=== PATIENT | male | born 1940 ===

== ENCOUNTER → 2018-08-31 | Outpatient (CLI) | payer OTHER | END | disposition home or self-care (01) | LOC: LAB SHORT 16:08 → LAB 16:08 | DX: S31.809D Unspecified open wound of unspecified buttock, subsequent encounter (principal); L08.9 Local infection of the skin and subcutaneous tissue, unspecified | CPT/HCPCS: 87070; 87075; 87076; 87185; 87205 ==

== ENCOUNTER → 2018-09-23 | Outpatient (CLI) | payer OTHER ==
[~2018-09-23] MED LIST: BENADRYL25 MG PO; CHOL10002 PO; IBUP600 PO; IBUPROFEN200 MG PO; LISI20 PO; LOPE2C PO; METO50 PO; TRAM50 PO; VIT C-ROSE HIP500 MG; Vancocin HCL1000 M1 PO
[2018-09-23 14:03] LABS: Bilirubin, Urine Neg (Neg); Blood, Urine Neg (Neg); Glucose Qualitative, Urine Neg (Neg); Ketones, Urine Neg (Neg); Leukocyte Esterase, Urine Neg (Neg); Nitrite, Urine Neg (Neg); Protein, Urine 1+ (Neg); Specific Gravity, Urine 1.015 (1.003-1.022); Urobilinogen, Urine NORM (Normal)
[2018-09-23 14:09] LABS: Appearance, Urine Clear (Clear); Color, Urine Yellow (P-Yellow)
== END | disposition home or self-care (01) ==
LOC: LAB 13:36 → LAB SHORT 13:36
PROVIDERS: Physician Assistant Medical
DX: M06.09 Rheumatoid arthritis without rheumatoid factor, multiple sites (principal); I10 Essential (primary) hypertension; R63.4 Abnormal weight loss
CPT/HCPCS: 81003

== ENCOUNTER 2018-11-27 15:28 | Inpatient (IN) | payer OTHER ==
[~2018-11-27] VITALS: Ht 175.3 cm; Wt 71.8 kg
[~2018-11-27 15:28] MED LIST changes: -Acetaminophen325 M1 PO; -Augmentin 875-1 EACH PO; -DOCU100 PO; -FENTANYL1 EAC1 TD; -Ferrous Glucon324 M1 PO; -GABA100 PO; -IBUP400 PO; -LEVSOD125 PO; -MELO7.5 PO; -PANT40 PO; -PROBIOTIC1 EACH PO
[2018-11-27] MEDS ORDERED: Acetaminophen325 M1 PO (15:56)
[2018-11-27] MEDS ORDERED: DOCU100 PO (15:56)
[2018-11-27] MEDS ORDERED: IBUP400 PO (15:57)
[2018-11-27] MEDS ORDERED: Ferrous Glucon324 M1 PO (15:58)
[2018-11-27] MEDS ORDERED: PROBIOTIC1 EACH PO (15:58)
[2018-11-27] MEDS ORDERED: PANT40 PO (15:58)
[2018-11-27 16:10] LABS: Source, Urine Clean Catch
[2018-11-27 16:14] LABS: BASOPHILS ABSOLUTE AUTO 0.03 K/mm3 (0.00-0.23); BASOPHILS PERCENT AUTO 0 % (0-2); EOSINOPHILS ABSOLUTE AUTO 1.01 K/mm3 (0.00-0.68); EOSINOPHILS PERCENT AUTO 5 % (0-6); Hematocrit 28.7 % (37.0-53.0); IMMATURE GRAN ABSOLUTE AUTO 0.11 K/mm3 (0.00-0.10); IMMATURE GRAN PERCENT AUTO 1 % (0-1); LYMPHOCYTES ABSOLUTE AUTO 1.61 K/mm3 (0.84-5.20); LYMPHOCYTES PERCENT AUTO 8 % (21-46); MONOCYTES ABSOLUTE AUTO 0.71 K/mm3 (0.16-1.47); MONOCYTES PERCENT AUTO 4 % (4-13); Mean Corpuscular HGB 30.4 pg (26.0-34.0); Mean Corpuscular HGB Conc 31.4 g/dL (31.5-36.5); Mean Corpuscular Volume 97 fL (80-100); NEUTROPHILS ABSOLUTE AUTO 15.73 K/mm3 (1.96-9.15); NEUTROPHILS PERCENT AUTO 82 % (41-73); RDW Coefficient Variation 15.8 % (11.7-14.2); RDW Standard Deviation 56.1 fL (35.1-46.3); Red Blood Cell Count 2.96 M/mm3 (4.30-5.90)
[2018-11-27 16:15] LABS: Mean Platelet Volume 8.8 fL (9.1-12.4); Platelet Count 402 K/mm3 (150-400)
[2018-11-27 17:00] LABS: Bilirubin, Urine Neg (Neg); Blood, Urine Neg (Neg); Glucose Qualitative, Urine Neg (Neg); Ketones, Urine Neg (Neg); Leukocyte Esterase, Urine 2+ (Neg); Nitrite, Urine Neg (Neg); Protein, Urine 2+ (Neg); Specific Gravity, Urine 1.015 (1.003-1.022); Urobilinogen, Urine NORM (Normal)
[2018-11-27 17:04] LABS: Alanine Aminotransfer (ALT/SGP 12 U/L (12-78); Albumin, Blood 2.8 g/dL (3.4-5.0); Albumin/Globulin Ratio 0.6 (0.8-1.8); Alk Phos 77 U/L (50-136); Anion Gap 9 mmol/L (6-16); Aspartate Aminotrans (AST/SGOT 13 U/L (12-37); Bilirubin, Total 0.2 mg/dL (0.1-1.0); Blood Urea Nitrogen 30 mg/dL (8-24); Bun/Creatinine Ratio 35.4 (12.0-20.0); CO2, Blood 19 mmol/L (21-32); Calcium, Blood 8.7 mg/dL (8.5-10.1); Chloride, Blood 108 mmol/L (98-108); Creatinine, Blood 0.85 mg/dL (0.60-1.20); Globulin, Blood 4.5 g/dL (2.2-4.0); Glomerular Filtration Rate >60 (60-); Glucose, Blood 96 mg/dL (70-99); Potassium, Blood 4.8 mmol/L (3.5-5.5); Sodium, Blood 136 mmol/L (136-145); Total Protein, Blood 7.3 g/dL (6.4-8.2)
[2018-11-27 17:05] LABS: Appearance, Urine Hazy (Clear); Color, Urine Yellow (P-Yellow)
[2018-11-27 17:10] LABS: Bacteria Few /hpf; Red Blood Cells, Urine 0-2 /hpf (0-2); Squamous Epithelial Cells Not Seen /hpf (Few)
[2018-11-27 19:49] LABS: Influenza A Negative (NEGATIVE); Influenza B Negative (NEGATIVE)
[2018-11-28 05:59] LABS: Anion Gap 9 mmol/L (6-16); Blood Urea Nitrogen 23 mg/dL (8-24); Bun/Creatinine Ratio 26.7 (12.0-20.0); CO2, Blood 20 mmol/L (21-32); Calcium, Blood 7.8 mg/dL (8.5-10.1); Chloride, Blood 110 mmol/L (98-108); Creatinine, Blood 0.86 mg/dL (0.60-1.20); Glomerular Filtration Rate >60 (60-); Glucose, Blood 75 mg/dL (70-99); Potassium, Blood 3.6 mmol/L (3.5-5.5); Sodium, Blood 139 mmol/L (136-145)
--- NOTE | 2018-11-28 06:18 | NUR ---
SHIFT SUMMARY 3210 RECEIVED PT TO 353 VIA GURNEY FROM ER. PT TO ER FROM [facility] WITH C/O FEVER, SINCE YESTERDAY AFTERNOON; 103.5. RECEIVED REPORT FROM CLARI LOZA. PT ADMITTED FOR SEPSIS R/T WOUND ON BUTTOCKS. PT FINISHING SEPSIS PROTOCOL WHEN COMING TO . H/H RN REPORTED WOUND LOOKING INFECTED WHEN WOUND VAC CHANGED AT [facility]. PT IS A&O, BUT VERY [place]. VERY DIFFICULT TO COMMUNICATE WITH BECAUSE HE CANNOT HEAR TO ANS QUESTIONS. CONTRACTURES IN ALL EXTREMITIES R/T ARTHRITIS. C/O SEVERE PAIN IN L LEG; VERY MISERABLE. ULTRAM GIVEN, BUT MINIMAL RELIEF. DR CALZADA NOTIFIED FOR ADDITIONAL PAIN MEDICATION. PT MEDICATED WITH 25 MCG FENTANYL PER EMAR, BUT STILL IS IN ALOT OF PAIN. OFFERED TO REPOSITION PT, BUT HE DECLINED. PER REPORT, PT WAS IRRITABLE IN ER, BUT HAS BEEN PLEASANT AND GRATEFUL FOR THE MOST PART UP HERE. PT IS JUST IN ALOT OF PAIN AND WAS VERY COLD R/T FEVER. WOUND VAC TO BE CHANGED OUT THIS AM. ROLL BUCKER INFORMED. BED ALARM ON FOR SAFETY. CALL LT IN REACH. PT USES URINAL IN BED AND CALLS FOR IT TO BE EMPTIED NEEDED.
[2018-11-28 07:40] LABS: Hematocrit 23.7 % (37.0-53.0); Hemoglobin 7.6 g/dL (13.5-17.5); Mean Corpuscular HGB 30.8 pg (26.0-34.0); Mean Corpuscular HGB Conc 32.1 g/dL (31.5-36.5); Mean Corpuscular Volume 96 fL (80-100); Platelet Count 293 K/mm3 (150-400); RDW Standard Deviation 56.2 fL (35.1-46.3); Red Blood Cell Count 2.47 M/mm3 (4.30-5.90); White Blood Cell Count 28.71 K/mm3 (4.00-11.30)
[2018-11-28 08:22] LABS: BAND PERCENT MAN 15 % (0-8); BASOPHILS PERCENT MAN 0 % (0-2); EOSINOPHILS PERCENT MAN 0 % (0-6); LYMPHOCYTES ABSOLUTE MAN 1.43 K/mm3 (0.84-5.20); LYMPHOCYTES PERCENT MAN 5 % (21-46); MONOCYTES ABSOLUTE MAN 0.28 K/mm3 (0.16-1.47); MONOCYTES PERCENT MAN 1 % (4-13); NEUTROPHILS ABSOLUTE MAN 26.98 K/mm3 (1.96-9.15); SEG NEUTROPHILS PERCENT MAN 79 % (41-73); TOTAL CELLS COUNTED 100
[2018-11-28 18:05] LABS: Vancomycin, Trough 14.4 ug/mL (5.0-10.0)
--- NOTE | 2018-11-28 19:35 | NUR ---
SHIFT SUMMARY NO ACUTE CHANGES. WOUND VAC REPLACED TODAY. MEDICATED FOR PAIN X 2 THIS SHIFT. NO COMPLAINTS OF NAUSEA OR SHORTNESS OF BREATH. PATIENT HARD OF HEARING BUT ABLE TO USE PEN AND PAPER TO COMMUNICATE WITH STAFF. CALL LIGHT IN REACH. REPORT GIVEN TO ONCOMING RN.
--- NOTE | 2018-11-29 03:42 | NUR ---
11/29/18 0325 REFUSED TO TURN HE IS "COMFORTABLE NOW". OFFERED PAIN MED BUT DECLINED AT PRESENT. INFORMED HIM WE WILL NEED TO TURN HIM LATER THIS SHIFT PER HOSPITAL PROTOCOL. RELUCTANTLY HE AGREED FOR LATER.
[2018-11-29 05:24] LABS: BASOPHILS ABSOLUTE AUTO 0.04 K/mm3 (0.00-0.23); BASOPHILS PERCENT AUTO 0 % (0-2); EOSINOPHILS ABSOLUTE AUTO 0.19 K/mm3 (0.00-0.68); EOSINOPHILS PERCENT AUTO 1 % (0-6); Hematocrit 22.3 % (37.0-53.0); Hemoglobin 7.2 g/dL (13.5-17.5); IMMATURE GRAN ABSOLUTE AUTO 0.16 K/mm3 (0.00-0.10); IMMATURE GRAN PERCENT AUTO 1 % (0-1); LYMPHOCYTES ABSOLUTE AUTO 0.99 K/mm3 (0.84-5.20); LYMPHOCYTES PERCENT AUTO 5 % (21-46); MONOCYTES ABSOLUTE AUTO 0.64 K/mm3 (0.16-1.47); MONOCYTES PERCENT AUTO 4 % (4-13); Mean Corpuscular HGB 30.9 pg (26.0-34.0); Mean Corpuscular HGB Conc 32.3 g/dL (31.5-36.5); Mean Corpuscular Volume 96 fL (80-100); NEUTROPHILS ABSOLUTE AUTO 16.51 K/mm3 (1.96-9.15); NEUTROPHILS PERCENT AUTO 89 % (41-73); RDW Coefficient Variation 16.1 % (11.7-14.2); RDW Standard Deviation 56.3 fL (35.1-46.3); Red Blood Cell Count 2.33 M/mm3 (4.30-5.90); White Blood Cell Count 18.53 K/mm3 (4.00-11.30)
[2018-11-29 05:25] LABS: Mean Platelet Volume 9.2 fL (9.1-12.4); Platelet Count 247 K/mm3 (150-400)
[2018-11-29 05:50] LABS: Anion Gap 12 mmol/L (6-16); Blood Urea Nitrogen 27 mg/dL (8-24); Bun/Creatinine Ratio 26.2 (12.0-20.0); CO2, Blood 16 mmol/L (21-32); Calcium, Blood 7.7 mg/dL (8.5-10.1); Chloride, Blood 111 mmol/L (98-108); Creatinine, Blood 1.03 mg/dL (0.60-1.20); Glomerular Filtration Rate >60 (60-); Glucose, Blood 68 mg/dL (70-99); Potassium, Blood 3.3 mmol/L (3.5-5.5); Sodium, Blood 139 mmol/L (136-145)
--- NOTE | 2018-11-29 06:18 | NUR ---
11/29/18 0600 HGB = 7.2 AND RN INFORMED PT THAT IT IS LOW AND DOCTOR MAY WANT TO GIVE HIM BLOOD TRANSFUSION AND NEED A CONSENT. PT REFUSED BLOOD TRANSFUSION FOR NOW AND WANTS TO "TAKE A PILL" TO BUILD UP BLOOD AND THEN GO HOME. RN SPOKE WITH SENIOR BUSINESS DEVELOPMENT ANALYST,DUSTIN, THAT PT HAD HGB = 7.6 AND NO TRANSFUSIONS WERE ORDERED. AFTER DISCUSSION RN WILL INFORM DAY RN THAT PT REFUSED TRANSFUSION FOR NOW AND DAY MD MAY DISCUSS OPTIONS WITH PT.
--- NOTE | 2018-11-29 16:17 | NUR ---
SHIFT SUMMARY NO ACUTE CHANGES. PATIENT PLEASANT AND COOPERATIVE WITH CARE. PEN AND PAPER USED TO COMMUNICATE WITH PATIENT. MEDICATED X 1 FOR PAIN URING SHIFT. PATIENT REPORTS HE IS FEELING BETTER. CALL LIGHT IN REACH, WILL CONTINUE TO MONITOR.
--- NOTE | 2018-11-30 04:48 | NUR ---
PT IS A/OX3, PLEASANT AND COOPERATIVE, THE PT IS VERY HARD OF HEARING, WRITTEN COMMUNICATION WORKS WELL FOR THE PT, THE PT REPORTED PAIN IN HIS NECK T/O THE NIGHT THE PT WAS MEDICATED FOR PAIN WELL GIVEN NECK MESSAGES HE REQUESTED, THE PT USED THE CALL SYSTEM APPROPRIATLY , THE PT WAS AWAKE FOR MOST OF THE NIGHT, THE PT APPEARS TO BE BREATHING EASILY ON O2 AT REST, CALL LIGHT IN REACH, BED IN THE LOW POSITION, BED ALARM ON
[2018-11-30 12:50] LABS: Stool Occult Blood Guaiac 1 Neg (Neg)
--- NOTE | 2018-11-30 18:43 | NUR ---
SUMMARY PT RESTING QUIETLY IN BED WATCHING TV, PT IS VERY [place], BUT IS ALERT, ORIENTED, AND PLEASANT, USES HIS CALL LIGHT APPROPRIATELY, MED PER EMAR FOR PAIN, PT TAKES HIS PILLS WHOLE WITH WATER, PT DOES NOT AMBULATE, WOUND VAC TO BE CHANGED BY MIS MANAGER, ODILON, NO ACUTE CHANGES, WILL CONT TO MONITOR
--- NOTE | 2018-12-01 06:11 | NUR ---
SHIFT SUMMARY PT ADMITTED FOR SEPSIS LIKELY SECONDARY TO DECUB TO L BUTTOCKS WITH WOUND VAC IN PLACE OR POSSIBLY PNEUMONIA, PT DID HAVE POSITIVE BLOOD CULTURES. FULL CODE. SOFET BIT SIZE DIET. BEDREST, PT IS BEDBOUND AT BASELINE. PT LIVES AT [facility] AND IS ANXIOUS TO RETURN. HOWEVER, IT APPEARS THAT PT MAY NEED IV ANTIBIOTICS FOR AN EXTENDED PERIOD OF TIME, AND JAIL PLACEMENT MAY NEED TO BE ARRANGED IF PT WILL AGREE. PT WAS BROUGHT OT THE ED DUE TO AMS AND FEVER. THE PT IS EXTREMELY [place] AND IT IS BEST TO COMMUNICATE IN WRITING. PT NOTED TO HAVE INCREASED TEMP X2 SO FAR THIS SHIFT, ADMINISTERED TYLENOL. C/O PAIN X2 AND MEDICATED WELL. PT HAS APPEARED TO SLEEP COMFORTABLY MOST OF THE NIGHT. PT APPEARES TO BE SLEEPING COMFORTABLY AT THIS TIME WITH NO APPARENT SIGNS OF ACUTE DISTRESS. ABLE TO MAKE NEEDS KNOWN AND CALL LIGHT IN REACH.
[2018-12-01 14:11] LABS: BASOPHILS ABSOLUTE AUTO 0.02 K/mm3 (0.00-0.23); BASOPHILS PERCENT AUTO 0 % (0-2); EOSINOPHILS ABSOLUTE AUTO 0.97 K/mm3 (0.00-0.68); EOSINOPHILS PERCENT AUTO 6 % (0-6); Hematocrit 23.9 % (37.0-53.0); Hemoglobin 7.5 g/dL (13.5-17.5); IMMATURE GRAN ABSOLUTE AUTO 0.19 K/mm3 (0.00-0.10); IMMATURE GRAN PERCENT AUTO 1 % (0-1); LYMPHOCYTES ABSOLUTE AUTO 1.16 K/mm3 (0.84-5.20); LYMPHOCYTES PERCENT AUTO 7 % (21-46); MONOCYTES ABSOLUTE AUTO 0.47 K/mm3 (0.16-1.47); MONOCYTES PERCENT AUTO 3 % (4-13); Mean Corpuscular HGB 30.7 pg (26.0-34.0); Mean Corpuscular HGB Conc 31.4 g/dL (31.5-36.5); Mean Corpuscular Volume 98 fL (80-100); NEUTROPHILS PERCENT AUTO 83 % (41-73); Platelet Count 293 K/mm3 (150-400); RDW Coefficient Variation 15.7 % (11.7-14.2); RDW Standard Deviation 56.6 fL (35.1-46.3); Red Blood Cell Count 2.44 M/mm3 (4.30-5.90); White Blood Cell Count 16.51 K/mm3 (4.00-11.30)
[2018-12-01 14:26] LABS: Anion Gap 8 mmol/L (6-16); Blood Urea Nitrogen 19 mg/dL (8-24); Bun/Creatinine Ratio 25.2 (12.0-20.0); CO2, Blood 19 mmol/L (21-32); Calcium, Blood 8.4 mg/dL (8.5-10.1); Chloride, Blood 107 mmol/L (98-108); Creatinine, Blood 0.75 mg/dL (0.60-1.20); Glomerular Filtration Rate >60 (60-); Glucose, Blood 86 mg/dL (70-99); Potassium, Blood 3.6 mmol/L (3.5-5.5); Sodium, Blood 134 mmol/L (136-145)
--- NOTE | 2018-12-01 18:05 | NUR ---
SHIFT SUMMARY T[place]A. USING URINAL AND BEDPAIN WELL; AFEBRILE THROUGHOUT SHIFT. REPOSITION Q [address]; FOLLOWING DIRECTIONS, CALM, COOPERATIVE. DENIES ANY PAIN OR DISTRESS.
--- NOTE | 2018-12-02 04:49 | NUR ---
SHIFT SUMMARY PT CONTINUES TO HAVE INCREASED TEMP X2, MEDICATED PER EMAR AND TEMP REDUCED. WILL RE-ASSESS TEMP FOR RECENT ADMINISTRATION. PT DID APPEAR TO BE MORE FATIGUED THIS NIGHT THEN PREVIOUS AND SLEP THROUGH MOST OF THIS SHIFT SO FAR. PT DOES EASILY AWAKEN WITH CARE. CONTINUE TO COMMUNICATE VIA WRITTEN DUE TO HEARING DEFECIT. WASHED PTS FACE PER PT REQUEST TO IMPROVE FEELINGS OF COMFORT AND CLEANLIENESS. PT CONTINUES TO RESIST REPOSITION AND REQUESTS TO LAY IN SIMILAR POSITION THROUGHOUT THE NIGHT. PT BECOMES AGITATED WITH MULTIPLE ATTEMPTS SO WEIGHT SHIFTING PERFORMED AND REPOSITIONED TOLLERATED. PT APPEARED TO SLEEP COMFORTABLY MOST OF THE NIGHT WITH NO APPARENT SIGNS OF ACUTE DISTRESS. ABLE TO MAKE NEEDS KNOWN AND CALL LIGHT IN REACH.
[2018-12-02 06:08] LABS: Creatinine, Blood 0.76 mg/dL (0.60-1.20); Vancomycin, Trough 15.4 ug/mL (5.0-10.0)
[2018-12-02 08:13] LABS: BASOPHILS ABSOLUTE AUTO 0.04 K/mm3 (0.00-0.23); BASOPHILS PERCENT AUTO 0 % (0-2); EOSINOPHILS ABSOLUTE AUTO 0.72 K/mm3 (0.00-0.68); EOSINOPHILS PERCENT AUTO 5 % (0-6); Hematocrit 22.7 % (37.0-53.0); Hemoglobin 7.1 g/dL (13.5-17.5); IMMATURE GRAN ABSOLUTE AUTO 0.29 K/mm3 (0.00-0.10); IMMATURE GRAN PERCENT AUTO 2 % (0-1); LYMPHOCYTES PERCENT AUTO 9 % (21-46); MONOCYTES ABSOLUTE AUTO 0.65 K/mm3 (0.16-1.47); MONOCYTES PERCENT AUTO 4 % (4-13); Mean Corpuscular HGB 31.3 pg (26.0-34.0); Mean Corpuscular HGB Conc 31.3 g/dL (31.5-36.5); Mean Corpuscular Volume 100 fL (80-100); Mean Platelet Volume 9.3 fL (9.1-12.4); NEUTROPHILS ABSOLUTE AUTO 12.09 K/mm3 (1.96-9.15); NEUTROPHILS PERCENT AUTO 80 % (41-73); Platelet Count 287 K/mm3 (150-400); RDW Coefficient Variation 15.6 % (11.7-14.2); RDW Standard Deviation 57.3 fL (35.1-46.3); Red Blood Cell Count 2.27 M/mm3 (4.30-5.90); White Blood Cell Count 15.19 K/mm3 (4.00-11.30)
[2018-12-02 08:17] LABS: Anion Gap 12 mmol/L (6-16); Blood Urea Nitrogen 19 mg/dL (8-24); Bun/Creatinine Ratio 25.1 (12.0-20.0); CO2, Blood 19 mmol/L (21-32); Calcium, Blood 8.5 mg/dL (8.5-10.1); Chloride, Blood 104 mmol/L (98-108); Creatinine, Blood 0.76 mg/dL (0.60-1.20); Glomerular Filtration Rate >60 (60-); Glucose, Blood 80 mg/dL (70-99); Potassium, Blood 3.8 mmol/L (3.5-5.5); Sodium, Blood 135 mmol/L (136-145)
--- NOTE | 2018-12-02 17:57 | NUR ---
SHIFT SUMMARY [place]; OX3; SAT ON EDGE OF BED WITH PHYSICAL THERAPY TODAY; UNABLE TO BEAR WEIGHT DUE TO WEAKNESS. USING URINAL AND BEDPAN. STAFF USING PEN AND PAPER FOR COMMUNICATION. WOUND VAC DRESSING CHANGE COMPLETED TODAY.
--- NOTE | 2018-12-02 20:53 | NUR ---
NOTIFIED DR FUNG THAT PT HAD TEMPORAL TEMP 101.4 AND ORAL TEMP 100.1. PT HAS SEPSIS ON VANCO AND ZOSYN FOR UTI AND POSITIVE BLOOD CULTURE . TYLENO 650 MG PO GIVEN AWAIT EFFECT
--- NOTE | 2018-12-03 06:02 | NUR ---
PT HAS PATENT WOUND VAC LT GLUTEAL WITH MINIMAL DRAINAGE TO CANNISTER. DRESSING WAS CHANGED 12/02/17 DAY SHIFT
--- NOTE | 2018-12-03 10:16 | NUR ---
ATTEMPTED TO CALL DR POTTS FAST BUSY NO ANSWER, WILL SEARCH FOR ALTERNATE CONTACT INFO.
--- NOTE | 2018-12-03 17:45 | NUR ---
SHIFT SUMMARY- PT HAS BEEN COMFORTABLE T/O THE SHIFT, FREQUENTLY PT WAS ASKED ABOUT PAIN AND DENIED THE NEED FOR PAIN MEDS. ON NURSE ROUNDING PT STATED HE HAS 10/10 PAIN, MEDICATED WITH PO TRAMADOL. WOUND VAC IN PLACE AND DRAINING SCANT AMOUNT OF SS FLUID. PT HAS A SMALL SKIN ABRASION ON THE LEFT RIBS COVERED WITH MEPILEX. WILL MEDICATE WITH PRN TYLENOL IF TRAMADOL NOT EFFECTIVE. IV PATENT IV ABX RUNNING NOW, THEN WILL START DOSE OF IV VANCO. PT VERY [place].
--- NOTE | 2018-12-04 02:08 | NUR ---
PT CONTINUES ON IV ANTIBIOTICS FOR SEPSIS UTI AND DECUB. HE HAS PAIN CONTROLLED ON ORAL MEDS WITH PRN FENTANYL AVAILABLE PRN FOR WOUND CARE. HE IS BEDBOUND WITH CONTRACTURES AND HE NEEDS REPOSITIONED Q 2 HOURS. HE HAS PATENT WOUND VAC TO LT GLUTEAL PATENT REINFORED ONCE FOR LEAK ALARM. DC PLANNING FOR CONTINUED IV ANTIBIOTICS. ORDERED INFECTIOUS DISEASE CONSULT. THAT IS NOT AVAILABE UNTIL DEC 10 2018.
[2018-12-04 04:54] LABS: BASOPHILS ABSOLUTE AUTO 0.04 K/mm3 (0.00-0.23); BASOPHILS PERCENT AUTO 0 % (0-2); EOSINOPHILS ABSOLUTE AUTO 1.27 K/mm3 (0.00-0.68); EOSINOPHILS PERCENT AUTO 8 % (0-6); Hematocrit 22.2 % (37.0-53.0); Hemoglobin 7.1 g/dL (13.5-17.5); IMMATURE GRAN ABSOLUTE AUTO 1.27 K/mm3 (0.00-0.10); IMMATURE GRAN PERCENT AUTO 8 % (0-1); LYMPHOCYTES PERCENT AUTO 10 % (21-46); MONOCYTES ABSOLUTE AUTO 0.92 K/mm3 (0.16-1.47); MONOCYTES PERCENT AUTO 6 % (4-13); Mean Corpuscular HGB 29.6 pg (26.0-34.0); Mean Platelet Volume 8.9 fL (9.1-12.4); NEUTROPHILS ABSOLUTE AUTO 11.27 K/mm3 (1.96-9.15); NEUTROPHILS PERCENT AUTO 69 % (41-73); Platelet Count 292 K/mm3 (150-400); RDW Standard Deviation 51.2 fL (35.1-46.3); White Blood Cell Count 16.37 K/mm3 (4.00-11.30)
[2018-12-04 04:55] LABS: Mean Corpuscular Volume 93 fL (80-100)
[2018-12-04 05:25] LABS: Albumin, Blood 1.7 g/dL (3.4-5.0); Anion Gap 11 mmol/L (6-16); Blood Urea Nitrogen 18 mg/dL (8-24); Bun/Creatinine Ratio 25.4 (12.0-20.0); CO2, Blood 20 mmol/L (21-32); Calcium, Blood 8.5 mg/dL (8.5-10.1); Chloride, Blood 102 mmol/L (98-108); Creatinine, Blood 0.71 mg/dL (0.60-1.20); Glomerular Filtration Rate >60 (60-); Glucose, Blood 79 mg/dL (70-99); Phosphorus, Blood 2.7 mg/dL (2.5-4.9); Potassium, Blood 3.7 mmol/L (3.5-5.5); Sodium, Blood 133 mmol/L (136-145)
--- NOTE | 2018-12-04 10:27 | NUR ---
PT SBP 112 AND HR 60, PERAMETERS FOR METOPROLOL ARE HOLD FOR HR LESS THAN 65. METOPROLOL NOT GIVEN. DR WHITLEY IS AWARE. PT MEDICATED FOR PAIN WITH TRAMADOL, DID NOT REQUEST THE PAIN MEDS BUT SEEMED RELIEVED THAT PAIN MEDS WERE AVAILABLE.
[2018-12-04 11:43] LABS: Vancomycin, Trough 15.7 ug/mL (5.0-10.0)
--- NOTE | 2018-12-04 19:55 | NUR ---
SHIFT SUMMARY- PT HAS HAD PAIN T/O THE SHIFT, FREQUENT REPOSITIONINGWAS DONE TO PREVENT FURTHER BREAKDOWN. DR SCHWAB CONSULTED TODAY TO SEE IF THERE IS ANY REASON FOR THE FEVERS THAT THE PT HAS BEEN HAVING. WOUND VAC NOT CHANGED, WAITING FOR DR TO COME AND SEE THE WOUND BED. LIVESTOCK BREEDER AWARE, NIGHT RN AWARE. PHOTOS SHOULD BE TAKEN WHEN THE VAC IS CHANGED. PT ALERT AND ORIENTED, VERY [place], USING PAPER AND PEN TO COMMUNICATE. PT HAS SEVERE RA, ALL JOINTS ARE PAINFUL.
[2018-12-04 23:02] LABS: Albumin, Blood 1.7 g/dL (3.4-5.0); Anion Gap 9 mmol/L (6-16); Blood Urea Nitrogen 18 mg/dL (8-24); Bun/Creatinine Ratio 25.9 (12.0-20.0); CO2, Blood 22 mmol/L (21-32); Calcium, Blood 8.3 mg/dL (8.5-10.1); Chloride, Blood 101 mmol/L (98-108); Glomerular Filtration Rate >60 (60-); Glucose, Blood 90 mg/dL (70-99); Phosphorus, Blood 2.8 mg/dL (2.5-4.9); Potassium, Blood 4.1 mmol/L (3.5-5.5); Sodium, Blood 132 mmol/L (136-145)
[2018-12-05 05:24] LABS: Hematocrit 21.7 % (37.0-53.0); Mean Corpuscular HGB 30.2 pg (26.0-34.0); Mean Corpuscular HGB Conc 32.3 g/dL (31.5-36.5); Mean Corpuscular Volume 94 fL (80-100); Platelet Count 302 K/mm3 (150-400); RDW Coefficient Variation 14.7 % (11.7-14.2); RDW Standard Deviation 49.8 fL (35.1-46.3); Red Blood Cell Count 2.32 M/mm3 (4.30-5.90)
[2018-12-05 06:09] LABS: BASOPHILS PERCENT MAN 0 % (0-2); EOSINOPHILS ABSOLUTE MAN 1.49 K/mm3 (0.00-0.68); EOSINOPHILS PERCENT MAN 10 % (0-6); LYMPHOCYTES ABSOLUTE MAN 1.04 K/mm3 (0.84-5.20); LYMPHOCYTES PERCENT MAN 7 % (21-46); MONOCYTES ABSOLUTE MAN 0.89 K/mm3 (0.16-1.47); MONOCYTES PERCENT MAN 6 % (4-13); MYELOCYTE ABSOLUTE MAN 0.59 K/mm3 (0.00-0.00); MYELOCYTE PERCENT MAN 4 % (0-0); NEUTROPHILS ABSOLUTE MAN 10.87 K/mm3 (1.96-9.15); SEG NEUTROPHILS PERCENT MAN 73 % (41-73); TOTAL CELLS COUNTED 100
--- NOTE | 2018-12-05 07:51 | NUR ---
SHIFT SUMMARY: PT COMMUNICATES TO STAFF USING NOTEPAD. VERY [place]. WOUND VAC IN PLACE TO L BUTTOCK; PATENT AND DRAINING SMALL AMOUNT OF LIGHT BROWN DRIANAGE. DRESSING C/D/I. 20 G IN L WRIST; PATENT AND RECIEVING ANTIBIOTICS. PT C/O PAIN SEVERAL TIMES, RELIEVED c TRAMADOL. IBUPROFEN ADMINISTERED 1X FOR TEMP OF 99. TEMP REMAINS WNL AFTER THAT. TOLERATES ROOM AIR. NO OTHER ACUTE CHANGES TO REPORT.
--- NOTE | 2018-12-05 09:10 | NUR ---
PT PLEASANT COOP UNABLE TO HEAR. DOES NOT READ LIPS WELL IF AT ALL. WRITE NOTES FOR HIM TO READ AND HE VERBALLY ANSWERS. ALERT AND ORIENTED. ANSWERS APPROP. SOME PAIN AT THIS TIME, NOT WANT MEDS AT THIS TIME. H/R IRREGULAR, NO MURMER NOTED. NO TELE. NO PACER NOTED. LUNGS CLEAR, RESP EASY, UNLABORED. BT X4 LAST BM NOT KNOWN BY PT. VOIDS IN URINAL. BED IN LOW POSITION, CALL LITE IN REACH. BED ALARM FOR SAFETY
--- NOTE | 2018-12-05 15:00 | NUR ---
PT STATES PAIN NOT BEING CONTROLLED WELL. DID GEVE FENTANYL, BUT PT FEELS BETTER IF LONG ACTING AVAILABLE. HE STATES TAKES 4 IBUPROPHEN BID JUST TO KEEP CLOSE TO COVERING, BUT DOES NOT REALLY HELP. EXPLAINED THIS CAN SOMETIMES CAUSE STOMACH PROBLEMS. HE STATES PAIN WORSE THAN POSS STOMACH PROBS. CALLED DR. CARR TO MAKE ORDERS.
--- NOTE | 2018-12-05 16:46 | NUR ---
I HAVE TRIED TO REPOSITION THE PATIENT SEVERAL TIMES AND HE HAS IMFORMED ME THAT "THE DOCTORS WANT ME TO LAY ON ONE SIDE AND THE NURSES WANT ME TO LAY ON ONE SIDE BUT GUESS WHAT I PAY THE BILLS HERE AND I AM GOING TO LAY THE WAY I WANT TO LAY"
--- NOTE | 2018-12-05 17:45 | NUR ---
TALKED TO PT ABOUT TURNING. HE HAS BEEN REFUSING. EXPLAINED 2 HRS NO MOVEMENT MAKES MORE BED SORES. HE AGREED TO LET ME MOVE PILLOWS TODAY, BUT NOT MUCH. REFUSED TO LAY ON EITHER SIDE. ONLY LIGHT PILLOW PLACEMENTS. DONE.
--- NOTE | 2018-12-05 19:09 | NUR ---
PT PLEASANT TODAY. HAS BEEN EXPLAINING ABOUT HIS PAIN. USUALLY NOT TOO BAD, BUTWITH ANY MOVEMENT SHOOTS UP TO OUT OF CONTROL IMMEDIATLY. TALKED TO DR ABOUT CHANGING MEDS TO BETTER COVERAGE. CHANGES MADE. NO OTHER CONCERNS AT THIS TIMNE. BED IN LOW POSITION, CALL LITE IN REACH, BED ALARM ON FOR SAFETY
[2018-12-06 05:18] LABS: Percent Saturation 18.3 % (20.0-50.0)
--- NOTE | 2018-12-06 06:21 | NUR ---
SHIFT SUMMARY: NO ACUTE CHANGES THIS SHIFT. PT A&O, BEDBOUND AT BASELINE. TREATED 1X c PO OXYCODONE FOR PAIN, THIS SEEMS TO BE PROVIDING MORE RELIEF. RECIEVED ANTIBIOTICS T/O SHIFT; SALINE LOCKED AT THIS TIME. CONTINENT OF URINE. STOOL SAMPLE STILL NEEDED, PT DID NOT HAVE BM TONIGHT. NO OTHER ACUTE CHANGES TO REPORT. WILL CONT TO MONITOR AND PROVIDE CARE UNTIL PRESUMED BY ONCOMING RN.
--- NOTE | 2018-12-06 08:00 | NUR ---
PT PLEASANT OCCATIONALLY BECOMES IRRITABLE. NO HEARING. WRITE QUESTIONS, WHICH HE READS. HE ANSWERS. A/O X3. STATES PAIN MANAGED BETTER. DENIES PAIN IN WOUND. VAC WORKING CORRECTLY. CONSTANT VACCUME MAINTAINANCE. H/R IRREG, NO MURMER NOTED. NO TELE. LUNGS CLEAR, RESP EASY, UNLABORED. ON R/A. BT X4 LAST BM YEST. VOIDS URINAL. R/A MAKES JOINTS HURT IF ANY MOVEMENT. BED IN LOW POSITION, CALL LITE IN REAC, CALLS APPROP
[2018-12-06 14:28] LABS: Stool Occult Blood Guaiac 1 Neg (Neg)
[2018-12-06 14:48] LABS: Hematocrit 22.3 % (37.0-53.0); Hemoglobin 7.2 g/dL (13.5-17.5)
--- NOTE | 2018-12-06 15:49 | NUR ---
PT PLEASANT TODAY. STATES FEELS PAIN REGIMIN BETTER THAN BEFORE. TAKING NORCO APPROX Q6. PRN. NO OTHER CONCERNS AT THIS TIME. HAS AGREED TO PILLOW PROPPING BETTER THAN YESTERDAY. WOUND VAC PUMP PRODUCED ONLY ABOUT 50 CC S/S FLUID. CONTINUE TO MONITOR. BED IN LOW POSITION, CALL LITE IN REACH, BED ALARM ON FOR SAFETY
[2018-12-06 18:04] LABS: Vancomycin, Trough 17.9 ug/mL (5.0-10.0)
[2018-12-07 05:17] LABS: Hematocrit 23.4 % (37.0-53.0); Hemoglobin 7.5 g/dL (13.5-17.5); Mean Corpuscular HGB 29.6 pg (26.0-34.0); Mean Corpuscular HGB Conc 32.1 g/dL (31.5-36.5); Mean Corpuscular Volume 93 fL (80-100); Mean Platelet Volume 8.7 fL (9.1-12.4); Platelet Count 367 K/mm3 (150-400); RDW Coefficient Variation 14.6 % (11.7-14.2); RDW Standard Deviation 49.2 fL (35.1-46.3); Red Blood Cell Count 2.53 M/mm3 (4.30-5.90); White Blood Cell Count 15.57 K/mm3 (4.00-11.30)
[2018-12-07 05:50] LABS: Albumin, Blood 1.8 g/dL (3.4-5.0); Anion Gap 10 mmol/L (6-16); Blood Urea Nitrogen 18 mg/dL (8-24); Bun/Creatinine Ratio 24.8 (12.0-20.0); CO2, Blood 22 mmol/L (21-32); Calcium, Blood 8.8 mg/dL (8.5-10.1); Chloride, Blood 99 mmol/L (98-108); Creatinine, Blood 0.73 mg/dL (0.60-1.20); Glomerular Filtration Rate >60 (60-); Glucose, Blood 76 mg/dL (70-99); Phosphorus, Blood 3.4 mg/dL (2.5-4.9); Potassium, Blood 4.1 mmol/L (3.5-5.5); Sodium, Blood 131 mmol/L (136-145)
[2018-12-07 06:05] LABS: BAND PERCENT MAN 1 % (0-8); BASOPHILS PERCENT MAN 0 % (0-2); EOSINOPHILS ABSOLUTE MAN 0.77 K/mm3 (0.00-0.68); EOSINOPHILS PERCENT MAN 5 % (0-6); LYMPHOCYTES PERCENT MAN 9 % (21-46); METAMYELOCYTE ABSOLUTE MAN 0.15 K/mm3 (0.00-0.00); METAMYELOCYTE PERCENT MAN 1 % (0-0); MONOCYTES ABSOLUTE MAN 0.15 K/mm3 (0.16-1.47); MONOCYTES PERCENT MAN 1 % (4-13); MYELOCYTE ABSOLUTE MAN 0.15 K/mm3 (0.00-0.00); MYELOCYTE PERCENT MAN 1 % (0-0); NEUTROPHILS ABSOLUTE MAN 12.92 K/mm3 (1.96-9.15); SEG NEUTROPHILS PERCENT MAN 82 % (41-73); TOTAL CELLS COUNTED 100
--- NOTE | 2018-12-07 07:41 | NUR ---
SHIFT SUMMARY NO ACUTE CHANGES THIS SHIFT. WOUND VAC IN PLACE TO L BUTTOCK, PATENT SUCTION SEAL, DRAINING SCANT AMOUNT OF S/S FLUID. TREATED 2X c 5MG PRN NORCO. PT REPORTS THAT CHANGE IN PAIN MEDS HAS HELPED CONTROL + LIMIT BREAK THROUGH PAIN. 22G IN L WRIST IS PATENT, SALINE LOCKED AT THIS TIME. PT ABLE TO COMMUINICATE VIA WRITING ON A PAD, D/T BEING NEARLY DEAF. PT REFUSING Q2H TURNS AND REFUSING TO WEAR SCDs. PT EDUCATED SEVERAL TIMES ON THE IMPORTANCE OF EACH. NO OTHER ACUTE CHANGES TO REPORT. WILL CONT TO MONITOR AND PROVIDE CARE UNTIL PRESUMED BY ONCOMING RN.
--- NOTE | 2018-12-07 19:10 | NUR ---
SHIFT SUMMARY: NO ACUTE CHANGES TO REPORT THIS SHIFT. PT A&O; [place]; CALM; APATHETIC TO CARE. MEDICATED FOR PAIN PER EMAR. IV ABX CONTINUING. EXPECTED D/C TO SNF ON 12/08. REPORT GIVEN TO ONCOMING RN.
--- NOTE | 2018-12-08 07:08 | NUR ---
SHIFT SUMMARY: NO ACUTE CHANGES THIS SHIFT. PT TREATED FOR PAIN c 5MG NORCO Q6H. LIQUID STOOL 1X THIS SHIFT; USES BEDPAN FOR BM AND URINAL TO VOID. RECIEVING ZOSYN THRU 22G IN L WRIST. A&O X 4, BED BOUND AT BASELINE. CONT TO REFUSE Q2H REPOSITIONING AND SCDs FOR DVT PROPHYLAXIS. WOUND VAC IN PLACE TO L BUTTOCK, SUCTIONING AND DRESSING IS C/D/I. PT TO D/C TODAY TO SNF.
[2018-12-08 11:08] LABS: Hematocrit 25.1 % (37.0-53.0); Hemoglobin 8.1 g/dL (13.5-17.5); Mean Corpuscular HGB 30.5 pg (26.0-34.0); Mean Corpuscular HGB Conc 32.3 g/dL (31.5-36.5); Mean Corpuscular Volume 94 fL (80-100); Mean Platelet Volume 8.4 fL (9.1-12.4); Platelet Count 407 K/mm3 (150-400); RDW Coefficient Variation 14.8 % (11.7-14.2); RDW Standard Deviation 51.1 fL (35.1-46.3); Red Blood Cell Count 2.66 M/mm3 (4.30-5.90); White Blood Cell Count 15.88 K/mm3 (4.00-11.30)
[2018-12-08 11:24] LABS: Albumin, Blood 1.9 g/dL (3.4-5.0); Anion Gap 8 mmol/L (6-16); Blood Urea Nitrogen 17 mg/dL (8-24); Bun/Creatinine Ratio 21.6 (12.0-20.0); CO2, Blood 24 mmol/L (21-32); Calcium, Blood 9.2 mg/dL (8.5-10.1); Chloride, Blood 98 mmol/L (98-108); Creatinine, Blood 0.79 mg/dL (0.60-1.20); Glomerular Filtration Rate >60 (60-); Glucose, Blood 93 mg/dL (70-99); Phosphorus, Blood 3.6 mg/dL (2.5-4.9); Potassium, Blood 4.3 mmol/L (3.5-5.5); Sodium, Blood 130 mmol/L (136-145)
[2018-12-08 11:38] LABS: BASOPHILS PERCENT MAN 0 % (0-2); EOSINOPHILS ABSOLUTE MAN 0.95 K/mm3 (0.00-0.68); EOSINOPHILS PERCENT MAN 6 % (0-6); LYMPHOCYTES ABSOLUTE MAN 1.74 K/mm3 (0.84-5.20); LYMPHOCYTES PERCENT MAN 11 % (21-46); METAMYELOCYTE ABSOLUTE MAN 0.31 K/mm3 (0.00-0.00); METAMYELOCYTE PERCENT MAN 2 % (0-0); MONOCYTES ABSOLUTE MAN 0.31 K/mm3 (0.16-1.47); MONOCYTES PERCENT MAN 2 % (4-13); MYELOCYTE ABSOLUTE MAN 0.15 K/mm3 (0.00-0.00); MYELOCYTE PERCENT MAN 1 % (0-0); NEUTROPHILS ABSOLUTE MAN 12.38 K/mm3 (1.96-9.15); SEG NEUTROPHILS PERCENT MAN 78 % (41-73); TOTAL CELLS COUNTED 100
[2018-12-08] MEDS ORDERED: Augmentin 875-1 EACH PO (17:13)
--- NOTE | 2018-12-08 17:57 | NUR ---
PATIENT DISCHARGE: PATIENT DISCHARGED/ TRANSFERRED TO SNF ([facility]) THIS SHIFT. MEDICATION RECONCILIATION COMPLETED; MED LIST FAXED TO ; HARD SCRIPT PROVIDED IN D/C PACKAGE FOR CONTROLLED SUBSTANCE. PATIENT DEPARTED MEDICAL FLOOR VIA [facility] WHEELCHAIR AT 1752. REPORT CALLED TO DENIA MONTOYA, AT .
== END 2018-12-08 17:54 | DRG 871 ==
LOC: ER 15:28 → MEDS 21:27
PROVIDERS: Emergency Medicine; Family Medicine; Internal Medicine; ADMIT Hospitalist
DX: A41.9 Sepsis, unspecified organism (principal); J18.9 Pneumonia, unspecified organism; N39.0 Urinary tract infection, site not specified; E87.1 Hypo-osmolality and hyponatremia; J98.11 Atelectasis; M84.451A Pathological fracture, right femur, initial encounter for fracture; R65.20 Severe sepsis without septic shock; M06.9 Rheumatoid arthritis, unspecified; I10 Essential (primary) hypertension; D50.9 Iron deficiency anemia, unspecified; J44.9 Chronic obstructive pulmonary disease, unspecified; L89.229 Pressure ulcer of left hip, unspecified stage; D47.3 Essential (hemorrhagic) thrombocythemia; E03.9 Hypothyroidism, unspecified; H91.90 Unspecified hearing loss, unspecified ear; Z87.891 Personal history of nicotine dependence; Z88.2 Allergy status to sulfonamides; Z88.8 Allergy status to other drugs, medicaments and biological substances; Z79.899 Other long term (current) drug therapy
CPT/HCPCS: 36415; 71046; 72193; 80048; 80053; 80069; 80202; 81001; 82270; 82272; 82565; 82607; 82728; 82746; 83540; 83550; 83605; 84145; 85014; 85018; 85025; 85651; 87040; 87070; 87077; 87086; 87186; 87205; 87804; 93005; 93010; 96361; 96365; 96367; 97110; 97162; 97530; 99285-25; J1940; J2543; J3010; J3370; J7030; J7050; J7120; Q9967

== ENCOUNTER → 2018-11-27 | Outpatient (CLI) | payer OTHER ==
[~2018-11-27] MED LIST changes: +ASCO500 PO; +Acetaminophen325 M1 PO; +Augmentin 875-1 EACH PO; +DOCU100 PO; +FENTANYL1 EAC1 TD; +Ferrous Glucon324 M1 PO; +GABA100 PO; +IBUP400 PO; +LEVSOD125 PO; +MELO7.5 PO; +PANT40 PO; +PROBIOTIC1 EACH PO; -VIT C-ROSE HIP500 MG
== END | disposition home or self-care (01) ==
LOC: LAB SHORT 11:45 → LAB 11:45
DX: L08.9 Local infection of the skin and subcutaneous tissue, unspecified (principal); L89.329 Pressure ulcer of left buttock, unspecified stage
CPT/HCPCS: 87070; 87077; 87186; 87205

== ENCOUNTER 2018-12-15 00:32 | Day surgery (SDC) | payer OTHER ==
[~2018-12-15 00:32] MED LIST changes: +Acetaminophen325 M1 PO; +Augmentin 875-1 EACH PO; +DOCU100 PO; +Ferrous Glucon324 M1 PO; +IBUP400 PO; +PANT40 PO; +PROBIOTIC1 EACH PO
== END 2018-12-15 22:33 | disposition home or self-care (01) ==
LOC: WOUND 00:32
DX: L89.324 Pressure ulcer of left buttock, stage 4 (principal); M06.9 Rheumatoid arthritis, unspecified; I10 Essential (primary) hypertension; E78.5 Hyperlipidemia, unspecified; J44.9 Chronic obstructive pulmonary disease, unspecified; Z87.891 Personal history of nicotine dependence
CPT/HCPCS: G0463

== ENCOUNTER 2018-12-29 13:25 | Day surgery (SDC) | payer OTHER | END 2018-12-29 22:41 | disposition home or self-care (01) | LOC: WOUND 13:25 | DX: L89.324 Pressure ulcer of left buttock, stage 4 (principal); Z74.09 Other reduced mobility; M06.9 Rheumatoid arthritis, unspecified ==

== ENCOUNTER → 2019-01-02 | Outpatient (CLI) | payer OTHER ==
[~2019-01-02] MED LIST changes: +FENTANYL1 EAC1 TD; +GABA100 PO; +LEVSOD125 PO; +MELO7.5 PO
== END | disposition home or self-care (01) ==
LOC: LAB UVN 06:00 → EDSTATUS 12:38
DX: A04.72 Enterocolitis due to Clostridium difficile, not specified as recurrent (principal)
CPT/HCPCS: 87493

== ENCOUNTER 2019-01-12 12:18 | Day surgery (SDC) | payer OTHER ==
[~2019-01-12 12:18] MED LIST changes: -FENTANYL1 EAC1 TD; -GABA100 PO; -LEVSOD125 PO; -MELO7.5 PO
== END 2019-01-12 22:36 | disposition home or self-care (01) ==
LOC: WOUND 12:18
DX: L89.323 Pressure ulcer of left buttock, stage 3 (principal); Z74.09 Other reduced mobility; M06.9 Rheumatoid arthritis, unspecified

== ENCOUNTER 2019-01-25 01:35 | Emergency (ER) | payer OTHER ==
[~2019-01-25] VITALS: Ht 172.7 cm; Wt 72.6 kg
[2019-01-25] MEDS ORDERED: LEVSOD125 PO (02:05)
[2019-01-25] MEDS ORDERED: MELO7.5 PO (02:07)
[2019-01-25] MEDS ORDERED: GABA100 PO (02:11)
[2019-01-25] MEDS ORDERED: FENTANYL1 EAC1 TD (02:14)
[2019-01-25 02:21] LABS: BASOPHILS ABSOLUTE AUTO 0.03 K/mm3 (0.00-0.23); BASOPHILS PERCENT AUTO 0 % (0-2); EOSINOPHILS ABSOLUTE AUTO 2.14 K/mm3 (0.00-0.68); EOSINOPHILS PERCENT AUTO 14 % (0-6); Hematocrit 21.8 % (37.0-53.0); IMMATURE GRAN ABSOLUTE AUTO 0.06 K/mm3 (0.00-0.10); IMMATURE GRAN PERCENT AUTO 0 % (0-1); LYMPHOCYTES ABSOLUTE AUTO 1.49 K/mm3 (0.84-5.20); LYMPHOCYTES PERCENT AUTO 10 % (21-46); MONOCYTES ABSOLUTE AUTO 0.84 K/mm3 (0.16-1.47); MONOCYTES PERCENT AUTO 6 % (4-13); Mean Corpuscular HGB Conc 32.1 g/dL (31.5-36.5); Mean Corpuscular Volume 97 fL (80-100); Mean Platelet Volume 9.1 fL (9.1-12.4); NEUTROPHILS ABSOLUTE AUTO 10.71 K/mm3 (1.96-9.15); NEUTROPHILS PERCENT AUTO 70 % (41-73); Platelet Count 385 K/mm3 (150-400); RDW Coefficient Variation 14.1 % (11.7-14.2); RDW Standard Deviation 49.8 fL (35.1-46.3); Red Blood Cell Count 2.26 M/mm3 (4.30-5.90); White Blood Cell Count 15.27 K/mm3 (4.00-11.30)
[2019-01-25 02:32] LABS: Anion Gap 10 mmol/L (6-16); Blood Urea Nitrogen 28 mg/dL (8-24); Bun/Creatinine Ratio 36.4 (12.0-20.0); CO2, Blood 23 mmol/L (21-32); Calcium, Blood 8.1 mg/dL (8.5-10.1); Chloride, Blood 100 mmol/L (98-108); Creatinine, Blood 0.77 mg/dL (0.60-1.20); Glomerular Filtration Rate >60 (60-); Glucose, Blood 92 mg/dL (70-99); Magnesium, Blood 1.8 mg/dL (1.6-2.4); Potassium, Blood 4.4 mmol/L (3.5-5.5); Sodium, Blood 133 mmol/L (136-145)
[2019-01-25 02:33] LABS: Alanine Aminotransfer (ALT/SGP 10 U/L (12-78); Albumin, Blood 2.3 g/dL (3.4-5.0); Albumin/Globulin Ratio 0.6 (0.8-1.8); Alk Phos 75 U/L (50-136); Aspartate Aminotrans (AST/SGOT 15 U/L (12-37); Bilirubin, Total 0.3 mg/dL (0.1-1.0); Globulin, Blood 3.6 g/dL (2.2-4.0); Total Protein, Blood 5.9 g/dL (6.4-8.2); Troponin I <0.015 ng/mL (0.000-0.040)
[2019-01-25 02:35] LABS: Prothrombin Time Results 10.6 Sec (9.7-11.5)
[2019-01-25 03:02] LABS: Source, Urine Catheter
[2019-01-25 03:05] LABS: Bilirubin, Urine Neg (Neg); Blood, Urine Neg (Neg); Glucose Qualitative, Urine Neg (Neg); Ketones, Urine Neg (Neg); Leukocyte Esterase, Urine Neg (Neg); Nitrite, Urine Neg (Neg); Protein, Urine 1+ (Neg); Specific Gravity, Urine 1.015 (1.003-1.022); Urobilinogen, Urine NORM (Normal)
[2019-01-25 03:08] LABS: Appearance, Urine Clear (Clear); Color, Urine Yellow (P-Yellow)
[2019-01-25 03:28] LABS: Influenza A Negative (NEGATIVE); Influenza B Negative (NEGATIVE)
== END 2019-01-25 05:07 | disposition home or self-care (01) ==
LOC: ER 01:35
PROVIDERS: Emergency Medicine
DX: R41.82 Altered mental status, unspecified (principal); Z88.2 Allergy status to sulfonamides; Z88.1 Allergy status to other antibiotic agents; Z79.899 Other long term (current) drug therapy; E03.9 Hypothyroidism, unspecified; D64.9 Anemia, unspecified; Z87.891 Personal history of nicotine dependence
CPT/HCPCS: 36415; 51702; 70450; 71045; 80053; 83605; 83735; 83880; 84484; 85025; 85610; 87804; 93005; 93010

== ENCOUNTER 2019-01-26 12:30 | Day surgery (SDC) | payer OTHER ==
[~2019-01-26 12:30] MED LIST changes: +FENTANYL1 EAC1 TD; +GABA100 PO; +LEVSOD125 PO; +MELO7.5 PO
== END 2019-01-26 22:33 | disposition home or self-care (01) ==
LOC: WOUND 12:30
DX: L89.324 Pressure ulcer of left buttock, stage 4 (principal); Z74.09 Other reduced mobility; M06.9 Rheumatoid arthritis, unspecified

== ENCOUNTER → 2019-01-27 | Outpatient (CLI) | payer OTHER ==
[2019-01-27 17:57] LABS: Source, Urine Catheter
[2019-01-27 18:23] LABS: Appearance, Urine Clear (Clear); Bilirubin, Urine Neg (Neg); Blood, Urine Neg (Neg); Color, Urine Yellow (P-Yellow); Glucose Qualitative, Urine Neg (Neg); Ketones, Urine Neg (Neg); Leukocyte Esterase, Urine Neg (Neg); Nitrite, Urine Neg (Neg); Protein, Urine 1+ (Neg); Urobilinogen, Urine NORM (Normal)
[2019-01-27 18:47] LABS: Specific Gravity, Urine 1.015 (1.003-1.022)
== END | disposition home or self-care (01) ==
LOC: EDSTATUS 08:47 → LAB UVN 17:55
DX: N39.0 Urinary tract infection, site not specified (principal)
CPT/HCPCS: 87086

== ENCOUNTER → 2019-01-28 | Outpatient (CLI) | payer OTHER | END | disposition home or self-care (01) | LOC: EDSTATUS 08:41 → LAB UVN 19:28 | DX: S91.309A Unspecified open wound, unspecified foot, initial encounter (principal); S81.809A Unspecified open wound, unspecified lower leg, initial encounter; A49.9 Bacterial infection, unspecified | CPT/HCPCS: 87070; 87075; 87076; 87077; 87147; 87185; 87186; 87205 ==

== ENCOUNTER 2019-02-03 09:09 | Emergency (ER) | payer OTHER ==
[~2019-02-03] VITALS: Ht 177.8 cm; Wt 72.6 kg
[2019-02-03 10:04] LABS: BASOPHILS ABSOLUTE AUTO 0.03 K/mm3 (0.00-0.23); BASOPHILS PERCENT AUTO 0 % (0-2); EOSINOPHILS PERCENT AUTO 4 % (0-6); Hemoglobin 8.6 g/dL (13.5-17.5); IMMATURE GRAN ABSOLUTE AUTO 0.16 K/mm3 (0.00-0.10); IMMATURE GRAN PERCENT AUTO 1 % (0-1); LYMPHOCYTES PERCENT AUTO 6 % (21-46); MONOCYTES ABSOLUTE AUTO 1.11 K/mm3 (0.16-1.47); MONOCYTES PERCENT AUTO 6 % (4-13); Mean Corpuscular HGB 30.8 pg (26.0-34.0); Mean Corpuscular HGB Conc 33.1 g/dL (31.5-36.5); Mean Corpuscular Volume 93 fL (80-100); Mean Platelet Volume 8.7 fL (9.1-12.4); NEUTROPHILS ABSOLUTE AUTO 17.05 K/mm3 (1.96-9.15); NEUTROPHILS PERCENT AUTO 84 % (41-73); Platelet Count 407 K/mm3 (150-400); RDW Standard Deviation 47.7 fL (35.1-46.3); Red Blood Cell Count 2.79 M/mm3 (4.30-5.90); White Blood Cell Count 20.25 K/mm3 (4.00-11.30)
[2019-02-03 10:24] LABS: Alanine Aminotransfer (ALT/SGP 11 U/L (12-78); Albumin, Blood 2.4 g/dL (3.4-5.0); Albumin/Globulin Ratio 0.6 (0.8-1.8); Alk Phos 67 U/L (50-136); Anion Gap 11 mmol/L (6-16); Aspartate Aminotrans (AST/SGOT 15 U/L (12-37); Bilirubin, Total 0.6 mg/dL (0.1-1.0); Blood Urea Nitrogen 29 mg/dL (8-24); Bun/Creatinine Ratio 40.6 (12.0-20.0); CO2, Blood 22 mmol/L (21-32); Calcium, Blood 8.1 mg/dL (8.5-10.1); Chloride, Blood 98 mmol/L (98-108); Creatinine, Blood 0.71 mg/dL (0.60-1.20); Globulin, Blood 4.1 g/dL (2.2-4.0); Glomerular Filtration Rate >60 (60-); Glucose, Blood 82 mg/dL (70-99); Potassium, Blood 4.7 mmol/L (3.5-5.5); Sodium, Blood 131 mmol/L (136-145); Total Protein, Blood 6.5 g/dL (6.4-8.2); Troponin I <0.015 ng/mL (0.000-0.040)
[2019-02-03 10:42] LABS: Source, Urine Clean Catch
[2019-02-03 10:49] LABS: Bilirubin, Urine Neg (Neg); Blood, Urine Neg (Neg); Glucose Qualitative, Urine Neg (Neg); Ketones, Urine Neg (Neg); Leukocyte Esterase, Urine Neg (Neg); Nitrite, Urine Neg (Neg); Protein, Urine 1+ (Neg); Urobilinogen, Urine NORM (Normal)
[2019-02-03 11:37] LABS: Appearance, Urine Clear (Clear); Color, Urine Yellow (P-Yellow)
--- NOTE | 2019-02-03 15:46 | NUR ---
Initial Visit: Palliative Care Consult for Goals of Care. Spoke with Dr Barahona and he reports the Pt would benefit from a palliative care visit. Dr Barahona reports diagnosis of cancer and there is a communication barrier. Pt is deaf. Visited with Pt and attempted to discuss diagnosis by writing. Attempted several times with no success. Pt appears to be struggling with understanding. He suggests that what the doctors are seeing may have something to do with his recent surgery. Pt requests to speak with Dr Barahona again. Spoke with Dr Barahona and he reports contacting a friend who speaks for the Pt and plans to come to hospital. Plan is to decrease communication barrier through Pt's friend and to offer options for plan of care to Pt. Will remain available.
== END 2019-02-03 17:20 | disposition home or self-care (01) ==
LOC: ER 09:09
PROVIDERS: Emergency Medicine
DX: R55 Syncope and collapse (principal); R19.7 Diarrhea, unspecified; E86.0 Dehydration; M89.9 Disorder of bone, unspecified; D64.9 Anemia, unspecified; E03.9 Hypothyroidism, unspecified; Z88.2 Allergy status to sulfonamides; Z88.1 Allergy status to other antibiotic agents; Z79.899 Other long term (current) drug therapy; Z87.891 Personal history of nicotine dependence
CPT/HCPCS: 51798; 74177; 80053; 84484; 85025; 87493; 93005; 93010; 96360-59; 99284-25; J7030; Q9967

== ENCOUNTER → 2019-05-11 | Outpatient (CLI) | payer OTHER | END | disposition home or self-care (01) | LOC: LAB UVN 10:48 → EDSTATUS 11:38 | DX: A49.9 Bacterial infection, unspecified (principal) | CPT/HCPCS: 87070; 87077; 87147; 87186; 87205 ==

== ENCOUNTER → 2019-05-31 | Outpatient (CLI) | payer OTHER | END | disposition home or self-care (01) | LOC: LAB UVN 12:17 → EDSTATUS 13:32 | DX: A49.9 Bacterial infection, unspecified (principal) | CPT/HCPCS: 87070; 87147; 87205 ==

== ENCOUNTER → 2019-06-29 | Outpatient (CLI) | payer OTHER | END | disposition home or self-care (01) | LOC: LAB UVN 09:35 → EDSTATUS 15:32 | DX: R19.7 Diarrhea, unspecified (principal); A04.72 Enterocolitis due to Clostridium difficile, not specified as recurrent | CPT/HCPCS: 87493 ==

== ENCOUNTER → 2019-06-30 | Outpatient (CLI) | payer OTHER | END | disposition home or self-care (01) | LOC: EDSTATUS 15:33 → LAB UVN 17:48 | DX: L08.9 Local infection of the skin and subcutaneous tissue, unspecified (principal); A49.9 Bacterial infection, unspecified | CPT/HCPCS: 87070; 87077; 87147; 87186; 87205 ==